=== PATIENT | female | born 2000 | race Caucasian/White ===

== ENCOUNTER 2024-11-05 11:30 | Outpatient (CLI) | payer BC, SELFPAY ==
[2024-11-15 18:07] LABS: Pap Test Screened Manually Done
== END 2024-11-05 11:31 | disposition home or self-care (01) ==
PROVIDERS: PCP Family Medicine; Visit Provider Registered Nurse
DX: Z12.4 Encounter for screening for malignant neoplasm of cervix (principal); N92.6 Irregular menstruation, unspecified
CPT/HCPCS: 83498; 87624; 87625; 88141; 88142; 88175